=== PATIENT | male | born 1940 ===

== ENCOUNTER 2018-02-08 13:00 | Inpatient (IN) | payer OTHER ==
[~2018-02-08] VITALS: Ht 170.2 cm; Wt 83.0 kg
[2018-03-03] MEDS ORDERED: HYOSCYAMINE0.125 M1 SL (13:27)
[2018-03-03] MEDS ORDERED: TAMSULOSIN HCL0.4 MG PO (13:27)
[2018-03-03] MEDS ORDERED: OXYC1TAB9 PO (13:28)
== END 2018-03-03 14:27 | disposition home or self-care (01) | DRG 379 ==
LOC: ADM 13:00 → O/R 02-13 05:45 → SURH 02-13 05:45 → EDSTATUS 02-13 13:00 → SURH 02-13 13:00 → CIR.AMB 02-13 13:00 → SURH 02-13 16:25
DX: K62.5 Hemorrhage of anus and rectum (principal); D12.8 Benign neoplasm of rectum; D12.0 Benign neoplasm of cecum; Z88.0 Allergy status to penicillin